=== PATIENT | male | born 1955 | race Caucasian/White ===

== ENCOUNTER 2017-10-31 11:14 | Inpatient (IN) | payer OTHER, MEDICAID ==
[2017-10-31] MEDS: METHYLPREDNISOLONE 125 MG INJ IV (14:39)
[2017-10-31 15:03] LABS: ADD MAN DIFF? NO
[2017-10-31] MEDS: ALBUTEROL 0.5% (NEB) 2.5 MG/0.5 ML AMP INH (15:11)
[2017-10-31 15:15] LABS: BASOPHILS % 0.2 % (0.0-2.0); HEMATOCRIT 43.5 % (42.0-52.0); HEMOGLOBIN 14.3 g/dl (14.0-18.0); LYMPHOCYTES # 1.5 10^3/ul (0.8-2.9); LYMPHOCYTES % 12.3 % (15.0-51.0); MEAN CORPUSCULAR HEMOGLOBIN 29.7 pg (29.0-33.0); MEAN CORPUSCULAR HGB CONC 32.9 g/dl (32.0-37.0); MEAN CORPUSCULAR VOLUME 90.4 fl (82.0-101.0); MEAN PLATELET VOLUME 9.6 fl (7.4-10.4); MONOCYTE # 1.3 10^3/ul (0.3-0.9); MONOCYTES % 10.2 % (0.0-11.0); NEUTROPHIL # 9.5 10^3/ul (1.6-7.5); NEUTROPHILS % 76.7 % (39.0-77.0); PLATELET COUNT 415 10^3/UL (140-415); RED BLOOD COUNT 4.81 10^6/ul (4.70-6.10); RED CELL DISTRIBUTION WIDTH 15.8 % (11.5-14.5)
[2017-10-31 15:15] LABS: WHITE BLOOD COUNT 12.4 10^3/ul (4.8-10.8)
[2017-10-31 15:40] LABS: LACTIC ACID 3.5 mmol/L (0.5-2.0)
[2017-10-31 15:42] LABS: ALANINE AMINOTRANSFERASE 727 IU/L (13-69); ALBUMIN 3.2 g/dl (3.3-4.9); ALBUMIN/GLOBULIN RATIO 1.18; ALKALINE PHOSPHATASE 202 IU/L (42-121); ANION GAP 18 (8-16); ASPARTATE AMINO TRANSFERASE 720 IU/L (15-46); BILIRUBIN,INDIRECT 1.9 mg/dl (0-1.1); BILIRUBIN,TOTAL 2.2 mg/dl (0.2-1.3); BLOOD UREA NITROGEN 46 mg/dl (7-20); CALCIUM 9.1 mg/dl (8.4-10.2); CARBON DIOXIDE 25 mmol/L (21-31); CHLORIDE 97 mmol/L (97-110); CREATINE KINASE 75 IU/L (23-200); CREATININE 1.11 mg/dl (0.61-1.24); GLUCOSE 95 mg/dl (70-220); POTASSIUM 5.6 mmol/L (3.5-5.1); SODIUM 134 mmol/L (135-144); TOTAL PROTEIN 5.9 g/dl (6.1-8.1)
[2017-10-31 15:47] LABS: ETHANOL < 10.0 mg/dl; INR 1.28; PROTIME 16.2 Sec (11.9-14.9); PT RATIO 1.3
[2017-10-31 15:48] LABS: PARTIAL THROMBOPLASTIN TIME 30.2 Sec (25.0-35.0)
[2017-10-31 15:52] LABS: CK INDEX 6.6; CK-MB 4.94 ng/ml (0.0-2.4); TROPONIN-I 0.062 ng/ml (0.000-0.120)
[2017-10-31 15:53] LABS: B-TYPE NATRIURETIC PEPTIDE > 35000 PG/ML (0-125)
[2017-10-31] MEDS: AZITHROMYCIN 500MG/NS (PMX) 250 ML IV (16:12)
[2017-10-31] MEDS: NA BICARBONATE 8.4% 50 ML SYG IV (16:49)
[2017-10-31] MEDS: CEFTRIAXONE 1 GM/50 ML (PMX) 50 ML IVPB (16:49)
[2017-10-31] MEDS: FUROSEMIDE 40 MG INJ IV (16:49)
[2017-10-31 16:50] LABS: AADO2 Arterial 26.8 mmHg (7.0-24.0); Allen Test ACCEPTAB; Arterial Base Excess -2.2 mmol/L (-3.0-3); Arterial Blood Gas Oxygen Sat 96.6 mmHG (95.0-98.0); Arterial COHb 0.9 % (0.0-3.0); Arterial Fraction of Oxyhgb 95.3 % (93.0-99.0); Arterial HCO3 20.5 mmol/L (22.0-26.0); Arterial MetHb 0.4 % (0.0-1.5); Arterial Total Hemglobin 14.4 g/dl (12.0-18.0); Arterial pCO2 29.9 mmhg (35-45); MODE ROOM AIR; Site Right Radial
[2017-10-31] MEDS: CA CHLORIDE 10% 10 ML SYRINGE IV (17:01)
[2017-10-31 17:04] LABS: ADD UMIC YES; UR ASCORBIC ACID NEGATIVE (NEGATIVE); UR BILIRUBIN (Dip) NEGATIVE (NEGATIVE); UR BLOOD (Dip) NEGATIVE (NEGATIVE); UR CLARITY SLIGHTLY CLOUDY (CLEAR); UR COLOR AMBER (YELLOW); UR GLUCOSE (Dip) NEGATIVE (NEGATIVE); UR KETONES (Dip) NEGATIVE (NEGATIVE); UR LEUKOCYTE ESTERASE (Dip) NEGATIVE Leu/ul (NEGATIVE); UR MUCUS FEW /HPF (NONE SEEN); UR NITRITE (Dip) NEGATIVE (NEGATIVE); UR RBC 1 /HPF (0-5); UR SPECIFIC GRAVITY (Dip) 1.023 (1.003-1.030); UR TOTAL PROTEIN (Dip) 2+ mg/dl (NEGATIVE); UR UROBILINOGEN (Dip) 1+ mg/dL (NEGATIVE); UR WBC 1 /HPF (0-5)
[2017-10-31] MEDS: ONDANSETRON 4 MG INJ IV (17:05)
[2017-10-31 17:09] LABS: LACTIC ACID 2.6 mmol/L (0.5-2.0)
[2017-10-31 17:27] LABS: BARBITURATES Negative (NEGATIVE); BENZODIAZEPINES Negative (NEGATIVE); CANNABINOIDS Negative (NEGATIVE); COCAINE Negative (NEGATIVE); OPIATES Negative (NEGATIVE)
[2017-10-31 17:34] LABS: AMPHETAMINE/METHAMPHETAMINE Positive (NEGATIVE)
[2017-10-31] MEDS ORDERED: ONDANSETRON 4 MG INJ IV (18:00)
[2017-10-31] MEDS ORDERED: ACETAMINOPHEN 325 MG TAB PO (18:00)
[2017-10-31] MEDS: ONDANSETRON (ODT) 4 MG TAB ODT (18:51)
[2017-10-31 20:49] LABS: LACTIC ACID 2.6 mmol/L (0.5-2.0)
[2017-10-31] MEDS ORDERED: ALBUTEROL/IPRATROPIUM (NEB) 3 ML AMP HHN (22:30)
[2017-11-01] MEDS ORDERED: FUROSEMIDE 40 MG INJ IV (09:00)
== END 2017-11-01 00:30 | disposition left against medical advice (07) | DRG 291 ==
LOC: E/R 11:14 → TEL 17:41
DX: I50.9 Heart failure, unspecified (principal); J18.9 Pneumonia, unspecified organism; J44.1 Chronic obstructive pulmonary disease with (acute) exacerbation; E87.1 Hypo-osmolality and hyponatremia; Z72.0 Tobacco use; Z59.0 Homelessness; K40.90 Unilateral inguinal hernia, without obstruction or gangrene, not specified as recurrent; Z91.19 Patient's noncompliance with other medical treatment and regimen; K72.90 Hepatic failure, unspecified without coma
CPT/HCPCS: 36415; 36600; 71045; 74176; 80053; 80307; 81001; 82550; 82553; 82803; 83605; 83880; 84484; 85025; 85610; 85730; 87040; 87081; 93005; 93970; 94644; 96374; 96375; 99291-25

== ENCOUNTER 2017-11-01 05:21 | Inpatient (IN) | payer OTHER ==
[2017-11-01] MEDS: ALBUTEROL 0.083% (NEB) 2.5 MG/3 ML AMP HHN (06:49)
[2017-11-01 06:52] LABS: ADD MAN DIFF? NO
[2017-11-01] MEDS: ASPIRIN 81 MG TAB PO (07:01)
[2017-11-01] MEDS: CEFTRIAXONE 1 GM/50 ML (PMX) 50 ML IVPB (07:02)
[2017-11-01] MEDS: FUROSEMIDE 40 MG INJ IV ×2 (07:02→19:13)
[2017-11-01 07:03] LABS: BASOPHILS % 0.1 % (0.0-2.0); HEMATOCRIT 43.2 % (42.0-52.0); LYMPHOCYTES # 0.7 10^3/ul (0.8-2.9); LYMPHOCYTES % 6.6 % (15.0-51.0); MEAN CORPUSCULAR HEMOGLOBIN 28.8 pg (29.0-33.0); MEAN CORPUSCULAR HGB CONC 32.4 g/dl (32.0-37.0); MEAN CORPUSCULAR VOLUME 88.9 fl (82.0-101.0); MEAN PLATELET VOLUME 9.8 fl (7.4-10.4); MONOCYTE # 0.8 10^3/ul (0.3-0.9); MONOCYTES % 6.8 % (0.0-11.0); NEUTROPHIL # 9.4 10^3/ul (1.6-7.5); PLATELET COUNT 330 10^3/UL (140-415); RED BLOOD COUNT 4.86 10^6/ul (4.70-6.10); RED CELL DISTRIBUTION WIDTH 15.8 % (11.5-14.5)
[2017-11-01 07:21] LABS: ALANINE AMINOTRANSFERASE 542 IU/L (13-69); ALBUMIN 3.2 g/dl (3.3-4.9); ALBUMIN/GLOBULIN RATIO 1.14; ALKALINE PHOSPHATASE 174 IU/L (42-121); ANION GAP 18 (8-16); ASPARTATE AMINO TRANSFERASE 241 IU/L (15-46); BILIRUBIN,INDIRECT 0.8 mg/dl (0-1.1); BILIRUBIN,TOTAL 0.8 mg/dl (0.2-1.3); BLOOD UREA NITROGEN 52 mg/dl (7-20); CALCIUM 9.2 mg/dl (8.4-10.2); CARBON DIOXIDE 27 mmol/L (21-31); CHLORIDE 97 mmol/L (97-110); CREATININE 1.22 mg/dl (0.61-1.24); GLUCOSE 124 mg/dl (70-220); LIPASE 42 U/L (23-300); POTASSIUM 5.7 mmol/L (3.5-5.1); SODIUM 136 mmol/L (135-144)
[2017-11-01 07:24] LABS: ETHANOL < 10.0 mg/dl
[2017-11-01 07:24] LABS: AMMONIA < 9 umol/l (9-30)
[2017-11-01 07:32] LABS: TROPONIN-I 0.084 ng/ml (0.000-0.120)
[2017-11-01] MEDS: AZITHROMYCIN 500MG/NS (PMX) 250 ML IVPB (07:35)
[2017-11-01 07:54] LABS: B-TYPE NATRIURETIC PEPTIDE 50000 PG/ML (0-125)
[2017-11-01 08:39] LABS: ADD UMIC NO; UR ASCORBIC ACID NEGATIVE (NEGATIVE); UR BILIRUBIN (Dip) NEGATIVE (NEGATIVE); UR BLOOD (Dip) NEGATIVE (NEGATIVE); UR CLARITY CLEAR (CLEAR); UR COLOR YELLOW (YELLOW); UR GLUCOSE (Dip) NEGATIVE (NEGATIVE); UR KETONES (Dip) NEGATIVE (NEGATIVE); UR LEUKOCYTE ESTERASE (Dip) NEGATIVE Leu/ul (NEGATIVE); UR NITRITE (Dip) NEGATIVE (NEGATIVE); UR SPECIFIC GRAVITY (Dip) 1.009 (1.003-1.030); UR TOTAL PROTEIN (Dip) NEGATIVE (NEGATIVE); UR UROBILINOGEN (Dip) NEGATIVE (NEGATIVE)
[2017-11-01 09:01] LABS: AMPHETAMINE/METHAMPHETAMINE Negative (NEGATIVE); BARBITURATES Negative (NEGATIVE); BENZODIAZEPINES Negative (NEGATIVE); CANNABINOIDS Negative (NEGATIVE); COCAINE Negative (NEGATIVE); OPIATES Negative (NEGATIVE)
[2017-11-01 17:58] LABS: HAAIG REFLEX REFLEX FILED
[2017-11-01] MEDS ORDERED: METOCLOPRAMIDE 10 MG INJ IV (18:00)
[2017-11-01] MEDS ORDERED: ACETAMINOPHEN 325 MG TAB PO (18:00)
[2017-11-01] MEDS ORDERED: ONDANSETRON 4 MG TAB PO (18:00)
[2017-11-01] MEDS ORDERED: DOCUSATE SODIUM 100 MG CAP PO (18:00)
[2017-11-01] MEDS ORDERED: NACL 0.9% 3 ML SYG IV (18:00)
[2017-11-01 18:48] LABS: HEPATITIS B SURFACE ANTIGEN NEGATIVE (NEGATIVE)
[2017-11-01 19:03] LABS: CREATINE KINASE 219 IU/L (23-200)
[2017-11-01 19:06] LABS: HEPATITIS B CORE ANTIBODY REACTIVE (NEGATIVE); HEPATITIS C VIRAL ANTIBODY NEGATIVE (NEGATIVE)
[2017-11-01] MEDS: NA POLYST SULFON 15 GM/60 ML BTL PO (19:13)
[2017-11-01 19:16] LABS: CK INDEX 3.8; CK-MB 8.42 ng/ml (0.0-2.4)
[2017-11-01 19:21] LABS: TROPONIN-I 0.136 ng/ml (0.000-0.120)
[2017-11-01] MEDS ORDERED: NITROGLYCERIN (SL) 0.4 MG TAB SL (21:00)
[2017-11-02 02:00] LABS: CREATINE KINASE 133 IU/L (23-200)
[2017-11-02 02:13] LABS: CK INDEX 5.7; CK-MB 7.62 ng/ml (0.0-2.4)
[2017-11-02 02:16] LABS: TROPONIN-I 0.184 ng/ml (0.000-0.120)
[2017-11-02] MEDS: PANTOPRAZOLE 40 MG INJ IV (05:47)
[2017-11-02] MEDS: FUROSEMIDE 40 MG INJ IV ×2 (05:53→17:34)
[2017-11-02 06:11] LABS: ADD MAN DIFF? NO
[2017-11-02 06:45] LABS: ABNORMAL IP MESSAGE 1; BASOPHILS % 0.1 % (0.0-2.0); HEMATOCRIT 36.8 % (42.0-52.0); HEMOGLOBIN 12.1 g/dl (14.0-18.0); LYMPHOCYTES # 0.6 10^3/ul (0.8-2.9); LYMPHOCYTES % 3.9 % (15.0-51.0); MEAN CORPUSCULAR HEMOGLOBIN 29.4 pg (29.0-33.0); MEAN CORPUSCULAR HGB CONC 32.9 g/dl (32.0-37.0); MEAN CORPUSCULAR VOLUME 89.3 fl (82.0-101.0); MEAN PLATELET VOLUME 9.7 fl (7.4-10.4); MONOCYTE # 1.3 10^3/ul (0.3-0.9); MONOCYTES % 8.6 % (0.0-11.0); NEUTROPHIL # 13.1 10^3/ul (1.6-7.5); NEUTROPHILS % 86.9 % (39.0-77.0); PLATELET COUNT 304 10^3/UL (140-415); POSITIVE DIFF @See below; RED BLOOD COUNT 4.12 10^6/ul (4.70-6.10); RED CELL DISTRIBUTION WIDTH 15.7 % (11.5-14.5)
[2017-11-02 07:18] LABS: ALANINE AMINOTRANSFERASE 340 IU/L (13-69); ALBUMIN 2.5 g/dl (3.3-4.9); ALKALINE PHOSPHATASE 143 IU/L (42-121); ANION GAP 13 (8-16); ASPARTATE AMINO TRANSFERASE 104 IU/L (15-46); BILIRUBIN,INDIRECT 0.6 mg/dl (0-1.1); BILIRUBIN,TOTAL 0.6 mg/dl (0.2-1.3); BLOOD UREA NITROGEN 50 mg/dl (7-20); CALCIUM 8.3 mg/dl (8.4-10.2); CARBON DIOXIDE 32 mmol/L (21-31); CHLORIDE 93 mmol/L (97-110); CHOLESTEROL 109 mg/dl (100-200); GLUCOSE 97 mg/dl (70-220); HDL CHOLESTEROL 18 mg/dl (30-78); LDL CHOLESTEROL,CALCULATED 66 mg/dl; MAGNESIUM 1.9 mg/dl (1.7-2.5); PHOSPHORUS 4.5 mg/dl (2.5-4.9); SODIUM 134 mmol/L (135-144); TRIGLYCERIDES 126 mg/dl (0-149)
[2017-11-02] MEDS: AZITHROMYCIN 250 MG TAB PO (08:10)
[2017-11-02] MEDS: ASPIRIN 81 MG TAB PO (08:10)
[2017-11-02] MEDS: ENOXAPARIN 40 MG/0.4 ML SYG SC (08:20)
[2017-11-02] MEDS: CEFTRIAXONE 1 GM/50 ML (PMX) 50 ML IVPB (11:43)
[2017-11-03] MEDS: ALBUTEROL/IPRATROPIUM (NEB) 3 ML AMP HHN ×2 (01:45→16:02)
[2017-11-03] MEDS: FUROSEMIDE 40 MG INJ IV ×2 (05:34→17:36)
[2017-11-03] MEDS: PANTOPRAZOLE (EC) 40 MG TAB PO (05:35)
[2017-11-03 06:40] LABS: ADD MAN DIFF? NO
[2017-11-03 06:49] LABS: WHITE BLOOD COUNT 9.9 10^3/ul (4.8-10.8)
[2017-11-03 06:49] LABS: BASOPHILS % 0.1 % (0.0-2.0); EOSINOPHILS # 0.1 10^3/ul (0.0-0.5); EOSINOPHILS % 0.7 % (0.0-7.0); HEMATOCRIT 36.8 % (42.0-52.0); LYMPHOCYTES # 1.2 10^3/ul (0.8-2.9); LYMPHOCYTES % 11.8 % (15.0-51.0); MEAN CORPUSCULAR HEMOGLOBIN 29.7 pg (29.0-33.0); MEAN CORPUSCULAR HGB CONC 32.6 g/dl (32.0-37.0); MEAN CORPUSCULAR VOLUME 91.1 fl (82.0-101.0); MEAN PLATELET VOLUME 9.7 fl (7.4-10.4); MONOCYTE # 1.1 10^3/ul (0.3-0.9); NEUTROPHIL # 7.5 10^3/ul (1.6-7.5); NEUTROPHILS % 75.7 % (39.0-77.0); PLATELET COUNT 298 10^3/UL (140-415); RED BLOOD COUNT 4.04 10^6/ul (4.70-6.10); RED CELL DISTRIBUTION WIDTH 15.7 % (11.5-14.5)
[2017-11-03 07:29] LABS: ANION GAP 9 (8-16); BLOOD UREA NITROGEN 51 mg/dl (7-20); CARBON DIOXIDE 39 mmol/L (21-31); CHLORIDE 90 mmol/L (97-110); CREATININE 0.96 mg/dl (0.61-1.24); GLUCOSE 77 mg/dl (70-220); POTASSIUM 3.6 mmol/L (3.5-5.1); SODIUM 134 mmol/L (135-144)
[2017-11-03 07:51] LABS: PROSTATE SPECIFIC ANTIGEN 0.3 ng/ml (0.0-4.0)
[2017-11-03] MEDS: AZITHROMYCIN 250 MG TAB PO (08:12)
[2017-11-03] MEDS: ASPIRIN 81 MG TAB PO (08:13)
[2017-11-03] MEDS: ENOXAPARIN 40 MG/0.4 ML SYG SC (08:27)
[2017-11-03] MEDS: CEFTRIAXONE 1 GM/50 ML (PMX) 50 ML IVPB (10:33)
[2017-11-04] MEDS: PANTOPRAZOLE (EC) 40 MG TAB PO (05:26)
[2017-11-04] MEDS: FUROSEMIDE 40 MG INJ IV ×2 (05:27→17:01)
[2017-11-04 07:13] LABS: ADD MAN DIFF? NO
[2017-11-04 07:19] LABS: WHITE BLOOD COUNT 9.7 10^3/ul (4.8-10.8)
[2017-11-04 07:19] LABS: BASOPHILS % 0.1 % (0.0-2.0); EOSINOPHILS # 0.2 10^3/ul (0.0-0.5); EOSINOPHILS % 2.3 % (0.0-7.0); HEMATOCRIT 39.9 % (42.0-52.0); HEMOGLOBIN 12.8 g/dl (14.0-18.0); LYMPHOCYTES # 1.6 10^3/ul (0.8-2.9); LYMPHOCYTES % 16.4 % (15.0-51.0); MEAN CORPUSCULAR HEMOGLOBIN 28.8 pg (29.0-33.0); MEAN CORPUSCULAR HGB CONC 32.1 g/dl (32.0-37.0); MEAN CORPUSCULAR VOLUME 89.7 fl (82.0-101.0); MEAN PLATELET VOLUME 9.7 fl (7.4-10.4); MONOCYTES % 10.5 % (0.0-11.0); NEUTROPHIL # 6.8 10^3/ul (1.6-7.5); NEUTROPHILS % 70.3 % (39.0-77.0); PLATELET COUNT 328 10^3/UL (140-415); RED BLOOD COUNT 4.45 10^6/ul (4.70-6.10); RED CELL DISTRIBUTION WIDTH 15.6 % (11.5-14.5)
[2017-11-04 07:41] LABS: BLOOD UREA NITROGEN 39 mg/dl (7-20); CHLORIDE 86 mmol/L (97-110); CREATININE 0.75 mg/dl (0.61-1.24); GLUCOSE 77 mg/dl (70-220); POTASSIUM 3.4 mmol/L (3.5-5.1); SODIUM 133 mmol/L (135-144)
[2017-11-04 08:02] LABS: ANION GAP 7 (8-16); CARBON DIOXIDE 43 mmol/L (21-31)
[2017-11-04] MEDS: ASPIRIN 81 MG TAB PO (08:43)
[2017-11-04] MEDS: AZITHROMYCIN 250 MG TAB PO (08:44)
[2017-11-04] MEDS: ENOXAPARIN 40 MG/0.4 ML SYG SC (08:45)
[2017-11-04] MEDS: CEFTRIAXONE 1 GM/50 ML (PMX) 50 ML IVPB (10:32)
[2017-11-04] MEDS: ALBUTEROL/IPRATROPIUM (NEB) 3 ML AMP HHN (13:19)
[2017-11-04 16:34] LABS: BLOOD UREA NITROGEN 36 mg/dl (7-20); CALCIUM 7.7 mg/dl (8.4-10.2); CHLORIDE 84 mmol/L (97-110); CREATININE 0.78 mg/dl (0.61-1.24); GLUCOSE 92 mg/dl (70-220); POTASSIUM 3.2 mmol/L (3.5-5.1); SODIUM 134 mmol/L (135-144)
[2017-11-04 16:49] LABS: ANION GAP 10 (8-16); CARBON DIOXIDE 43 mmol/L (21-31)
[2017-11-04] MEDS: POTASSIUM CHLORIDE (SR) 20 MEQ TAB PO (20:28)
[2017-11-04] MEDS: ACETAZOLAMIDE 250 MG TAB PO (20:29)
[2017-11-05] MEDS ORDERED: SPIRONOLACTONE 25 MG TAB PO (09:00)
[2017-11-05] MEDS ORDERED: LISINOPRIL 5 MG TAB PO (09:00)
== END 2017-11-04 23:55 | disposition left against medical advice (07) | DRG 291 ==
LOC: 6WM 11-02 18:12 → E/R 05:21 → MS3 07:01
DX: I11.0 Hypertensive heart disease with heart failure (principal); J18.9 Pneumonia, unspecified organism; B19.10 Unspecified viral hepatitis B without hepatic coma; J44.1 Chronic obstructive pulmonary disease with (acute) exacerbation; J44.0 Chronic obstructive pulmonary disease with (acute) lower respiratory infection; I50.23 Acute on chronic systolic (congestive) heart failure; Z59.0 Homelessness; R06.01 Orthopnea; R91.8 Other nonspecific abnormal finding of lung field; E87.5 Hyperkalemia; R94.31 Abnormal electrocardiogram [ECG] [EKG]; R79.89 Other specified abnormal findings of blood chemistry; F17.200 Nicotine dependence, unspecified, uncomplicated
CPT/HCPCS: 36415; 71045; 76705; 76856; 80048; 80053; 80061; 80307; 81003; 82140; 82550; 82553; 83690; 83735; 83880; 84100; 84153; 84154; 84484; 85025; 86704; 86709; 86803; 87340; 93005; 93306; 94640; 94644; 94664; 99291-25

== ENCOUNTER 2017-12-09 05:20 | Inpatient (IN) | payer OTHER ==
[2017-12-09] MEDS ORDERED: ACETAMINOPHEN 325 MG TAB PO (07:30)
[2017-12-09] MEDS: ALBUTEROL/IPRATROPIUM (NEB) 3 ML AMP HHN ×4 (08:10→21:00)
[2017-12-09 08:54] LABS: ADD MAN DIFF? NO
[2017-12-09 08:56] LABS: BASOPHILS % 0.2 % (0.0-2.0); EOSINOPHILS % 0.3 % (0.0-7.0); HEMATOCRIT 51.5 % (42.0-52.0); HEMOGLOBIN 16.2 g/dl (14.0-18.0); LYMPHOCYTES # 1.1 10^3/ul (0.8-2.9); LYMPHOCYTES % 11.1 % (15.0-51.0); MEAN CORPUSCULAR HEMOGLOBIN 27.6 pg (29.0-33.0); MEAN CORPUSCULAR HGB CONC 31.5 g/dl (32.0-37.0); MEAN CORPUSCULAR VOLUME 87.9 fl (82.0-101.0); MEAN PLATELET VOLUME 10.3 fl (7.4-10.4); MONOCYTE # 0.7 10^3/ul (0.3-0.9); MONOCYTES % 7.3 % (0.0-11.0); NEUTROPHIL # 8.1 10^3/ul (1.6-7.5); NEUTROPHILS % 80.7 % (39.0-77.0); PLATELET COUNT 343 10^3/UL (140-415); RED BLOOD COUNT 5.86 10^6/ul (4.70-6.10); RED CELL DISTRIBUTION WIDTH 17.1 % (11.5-14.5)
[2017-12-09] MEDS: ENOXAPARIN 60 MG/0.6 ML SYG SC ×2 (09:00→13:33)
[2017-12-09 09:21] LABS: ANION GAP 14 (8-16); BLOOD UREA NITROGEN 30 mg/dl (7-20); CARBON DIOXIDE 29 mmol/L (21-31); CHLORIDE 98 mmol/L (97-110); CREATININE 0.69 mg/dl (0.61-1.24); GLUCOSE 130 mg/dl (70-220); POTASSIUM 5.6 mmol/L (3.5-5.1); SODIUM 135 mmol/L (135-144)
[2017-12-09 11:46] LABS: MAGNESIUM 2.1 mg/dl (1.7-2.5)
[2017-12-09] MEDS ORDERED: ZOLPIDEM 5 MG TAB PO (13:00)
[2017-12-09] MEDS ORDERED: NACL 0.9% 3 ML SYG IV (13:00)
[2017-12-09] MEDS ORDERED: IBUPROFEN 600 MG TAB PO (13:00)
[2017-12-09] MEDS ORDERED: ONDANSETRON 4 MG INJ IV (13:00)
[2017-12-09] MEDS: NA POLYST SULFON 15 GM/60 ML BTL PO (13:29)
[2017-12-09 14:22] LABS: PT RATIO 1.2
[2017-12-09 14:43] LABS: INR 1.14; PROTIME 14.8 Sec (11.9-14.9)
[2017-12-09 14:44] LABS: PARTIAL THROMBOPLASTIN TIME 31.6 Sec (25.0-35.0)
[2017-12-09 19:25] LABS: HDL CHOLESTEROL 23 mg/dl (30-78); LDL CHOLESTEROL,CALCULATED 95 mg/dl; TRIGLYCERIDES 110 mg/dl (0-149)
[2017-12-09 19:25] LABS: CHOLESTEROL 140 mg/dl (100-200)
[2017-12-09 19:38] LABS: TROPONIN-I 0.091 ng/ml (0.000-0.120)
[2017-12-09] MEDS: METOPROLOL 25 MG TAB PO (20:32)
[2017-12-09] MEDS: DOCUSATE SODIUM 100 MG CAP PO (20:33)
[2017-12-10] MEDS: ALBUTEROL/IPRATROPIUM (NEB) 3 ML AMP HHN ×6 (00:56→20:25)
[2017-12-10 05:08] LABS: ADD MAN DIFF? NO
[2017-12-10 05:26] LABS: WHITE BLOOD COUNT 10.3 10^3/ul (4.8-10.8)
[2017-12-10 05:26] LABS: BASOPHILS % 0.1 % (0.0-2.0); EOSINOPHILS % 0.1 % (0.0-7.0); HEMATOCRIT 46.3 % (42.0-52.0); HEMOGLOBIN 14.8 g/dl (14.0-18.0); LYMPHOCYTES # 1.2 10^3/ul (0.8-2.9); LYMPHOCYTES % 11.9 % (15.0-51.0); MEAN CORPUSCULAR HEMOGLOBIN 27.7 pg (29.0-33.0); MEAN CORPUSCULAR VOLUME 86.5 fl (82.0-101.0); MEAN PLATELET VOLUME 10.2 fl (7.4-10.4); MONOCYTE # 1.1 10^3/ul (0.3-0.9); MONOCYTES % 10.3 % (0.0-11.0); PLATELET COUNT 282 10^3/UL (140-415); RED BLOOD COUNT 5.35 10^6/ul (4.70-6.10); RED CELL DISTRIBUTION WIDTH 17.1 % (11.5-14.5)
[2017-12-10] MEDS: PANTOPRAZOLE (EC) 40 MG TAB PO (05:37)
[2017-12-10 07:29] LABS: ALANINE AMINOTRANSFERASE 74 IU/L (13-69); ALBUMIN 2.4 g/dl (3.3-4.9); ALBUMIN/GLOBULIN RATIO 0.85; ALKALINE PHOSPHATASE 195 IU/L (42-121); ANION GAP 11 (8-16); ASPARTATE AMINO TRANSFERASE 53 IU/L (15-46); BILIRUBIN,INDIRECT 0.9 mg/dl (0-1.1); BILIRUBIN,TOTAL 1.6 mg/dl (0.2-1.3); BLOOD UREA NITROGEN 32 mg/dl (7-20); CALCIUM 8.8 mg/dl (8.4-10.2); CARBON DIOXIDE 31 mmol/L (21-31); CHLORIDE 97 mmol/L (97-110); CREATININE 0.75 mg/dl (0.61-1.24); GLUCOSE 88 mg/dl (70-220); SODIUM 134 mmol/L (135-144); TOTAL PROTEIN 5.2 g/dl (6.1-8.1)
[2017-12-10] MEDS: METOPROLOL 25 MG TAB PO ×3 (08:38→20:47)
[2017-12-10] MEDS: ENOXAPARIN 60 MG/0.6 ML SYG SC ×2 (08:47→20:49)
[2017-12-10] MEDS: HYDROCODONE/APAP (5/325) TAB PO (20:46)
[2017-12-11] MEDS: ALBUTEROL/IPRATROPIUM (NEB) 3 ML AMP HHN ×5 (01:00→20:47)
[2017-12-11] MEDS: FUROSEMIDE 20 MG INJ IV ×2 (05:58→18:05)
[2017-12-11] MEDS: PANTOPRAZOLE (EC) 40 MG TAB PO (05:58)
[2017-12-11] MEDS: METOPROLOL 25 MG TAB PO (08:52)
[2017-12-11] MEDS: ENOXAPARIN 60 MG/0.6 ML SYG SC ×2 (09:13→20:55)
[2017-12-12] MEDS: ALBUTEROL/IPRATROPIUM (NEB) 3 ML AMP HHN ×6 (00:53→20:34)
[2017-12-12] MEDS: PANTOPRAZOLE (EC) 40 MG TAB PO (06:19)
[2017-12-12] MEDS: FUROSEMIDE 20 MG INJ IV ×2 (06:19→17:24)
[2017-12-12] MEDS: SPIRONOLACTONE 25 MG TAB PO (08:36)
[2017-12-12] MEDS: METOPROLOL 25 MG TAB PO (08:37)
[2017-12-12] MEDS: ENOXAPARIN 60 MG/0.6 ML SYG SC (08:41)
[2017-12-12 09:15] LABS: ALANINE AMINOTRANSFERASE 58 IU/L (13-69); ALBUMIN 2.1 g/dl (3.3-4.9); ALBUMIN/GLOBULIN RATIO 0.84; ALKALINE PHOSPHATASE 163 IU/L (42-121); ANION GAP 10 (8-16); ASPARTATE AMINO TRANSFERASE 33 IU/L (15-46); BILIRUBIN,INDIRECT 1.1 mg/dl (0-1.1); BILIRUBIN,TOTAL 1.3 mg/dl (0.2-1.3); BLOOD UREA NITROGEN 35 mg/dl (7-20); CALCIUM 8.2 mg/dl (8.4-10.2); CARBON DIOXIDE 35 mmol/L (21-31); CHLORIDE 94 mmol/L (97-110); CREATININE 0.64 mg/dl (0.61-1.24); GLUCOSE 62 mg/dl (70-220); POTASSIUM 3.2 mmol/L (3.5-5.1); SODIUM 136 mmol/L (135-144); TOTAL PROTEIN 4.6 g/dl (6.1-8.1)
[2017-12-12] MEDS ORDERED: PENDING SANTYL ORDER FOR WOUND CARE XX (11:00)
[2017-12-12] MEDS ORDERED: COLLAGENASE 5 GM (UD JAR) TOP (11:30)
[2017-12-12] MEDS: COLLAGENASE 5 GM (UD JAR) TOP (12:37)
[2017-12-12] MEDS: POTASSIUM CHLORIDE (SR) 20 MEQ TAB PO (17:25)
[2017-12-12] MEDS: DOCUSATE SODIUM 100 MG CAP PO (17:55)
[2017-12-12] MEDS: APIXABAN 5 MG TABLET PO (20:48)
[2017-12-12] MEDS: METOPROLOL (XL) 25 MG TAB PO (20:48)
[2017-12-13] MEDS: ALBUTEROL/IPRATROPIUM (NEB) 3 ML AMP HHN ×6 (01:34→21:18)
[2017-12-13 06:01] LABS: ALANINE AMINOTRANSFERASE 62 IU/L (13-69); ALBUMIN 2.1 g/dl (3.3-4.9); ALKALINE PHOSPHATASE 180 IU/L (42-121); ANION GAP 9 (8-16); ASPARTATE AMINO TRANSFERASE 41 IU/L (15-46); BILIRUBIN,INDIRECT 1.3 mg/dl (0-1.1); BILIRUBIN,TOTAL 1.5 mg/dl (0.2-1.3); BLOOD UREA NITROGEN 27 mg/dl (7-20); CALCIUM 7.7 mg/dl (8.4-10.2); CARBON DIOXIDE 39 mmol/L (21-31); CHLORIDE 89 mmol/L (97-110); CREATININE 0.53 mg/dl (0.61-1.24); GLUCOSE 76 mg/dl (70-220); POTASSIUM 3.1 mmol/L (3.5-5.1); SODIUM 134 mmol/L (135-144); TOTAL PROTEIN 4.7 g/dl (6.1-8.1)
[2017-12-13] MEDS: PANTOPRAZOLE (EC) 40 MG TAB PO (06:16)
[2017-12-13] MEDS: FUROSEMIDE 20 MG INJ IV ×3 (06:16→17:26)
[2017-12-13] MEDS: SPIRONOLACTONE 25 MG TAB PO (09:17)
[2017-12-13] MEDS: METOPROLOL (XL) 25 MG TAB PO ×2 (09:18→20:57)
[2017-12-13] MEDS: POTASSIUM CHLORIDE (SR) 20 MEQ TAB PO ×3 (09:18→20:56)
[2017-12-13] MEDS: APIXABAN 5 MG TABLET PO ×2 (09:18→20:56)
[2017-12-13] MEDS: LISINOPRIL 5 MG TAB PO (09:18)
[2017-12-13] MEDS: BALSAM PERU/CASTOR OIL 60 GM TUBE TOP (09:18)
[2017-12-13] MEDS: COLLAGENASE 5 GM (UD JAR) TOP (09:19)
[2017-12-13] MEDS ORDERED: NA PHOSPHATE/BIPHOS 133 ML ENEMA PR (17:00)
[2017-12-13] MEDS: POLYETHYLENE GLYCOL 17 GM PACKET PO ×2 (17:00→17:16)
[2017-12-13] MEDS: BISACODYL (EC) 5 MG TAB PO ×2 (17:00→17:16)
[2017-12-14] MEDS: ALBUTEROL/IPRATROPIUM (NEB) 3 ML AMP HHN ×5 (00:22→21:00)
[2017-12-14] MEDS: PANTOPRAZOLE (EC) 40 MG TAB PO (06:10)
[2017-12-14] MEDS: FUROSEMIDE 20 MG INJ IV (06:10)
[2017-12-14 06:11] LABS: ANION GAP 7 (8-16); BLOOD UREA NITROGEN 20 mg/dl (7-20); CALCIUM 7.6 mg/dl (8.4-10.2); CARBON DIOXIDE 40 mmol/L (21-31); CHLORIDE 87 mmol/L (97-110); CREATININE 0.45 mg/dl (0.61-1.24); GLUCOSE 75 mg/dl (70-220); POTASSIUM 3.2 mmol/L (3.5-5.1); SODIUM 131 mmol/L (135-144)
[2017-12-14] MEDS: SPIRONOLACTONE 25 MG TAB PO (08:56)
[2017-12-14] MEDS: BISACODYL (EC) 5 MG TAB PO (08:56)
[2017-12-14] MEDS: POTASSIUM CHLORIDE (SR) 20 MEQ TAB PO ×4 (08:57→21:52)
[2017-12-14] MEDS: POLYETHYLENE GLYCOL 17 GM PACKET PO (08:57)
[2017-12-14] MEDS: COLLAGENASE 5 GM (UD JAR) TOP (08:57)
[2017-12-14] MEDS: APIXABAN 5 MG TABLET PO ×3 (08:57→21:51)
[2017-12-14] MEDS: METOPROLOL (XL) 25 MG TAB PO ×2 (08:57→21:51)
[2017-12-14] MEDS: LISINOPRIL 5 MG TAB PO (08:57)
[2017-12-14] MEDS: BALSAM PERU/CASTOR OIL 60 GM TUBE TOP (08:58)
[2017-12-14] MEDS: ACETAZOLAMIDE 500 MG INJ IV ×2 (16:40→21:50)
[2017-12-14] MEDS ORDERED: METOPROLOL 5 MG INJ IV (20:00)
[2017-12-15] MEDS: ALBUTEROL/IPRATROPIUM (NEB) 3 ML AMP HHN ×6 (01:45→21:00)
[2017-12-15] MEDS: PANTOPRAZOLE (EC) 40 MG TAB PO (06:00)
[2017-12-15] MEDS: APIXABAN 5 MG TABLET PO (08:54)
[2017-12-15] MEDS: BALSAM PERU/CASTOR OIL 60 GM TUBE TOP (08:54)
[2017-12-15] MEDS: METOPROLOL (XL) 25 MG TAB PO ×2 (08:55→21:00)
[2017-12-15] MEDS: POTASSIUM CHLORIDE (SR) 20 MEQ TAB PO ×3 (08:55→21:19)
[2017-12-15] MEDS: LISINOPRIL 5 MG TAB PO (08:55)
[2017-12-15] MEDS: BISACODYL (EC) 5 MG TAB PO (08:55)
[2017-12-15] MEDS: SPIRONOLACTONE 25 MG TAB PO (08:55)
[2017-12-15] MEDS: POLYETHYLENE GLYCOL 17 GM PACKET PO (08:55)
[2017-12-15] MEDS: COLLAGENASE 5 GM (UD JAR) TOP (08:57)
[2017-12-15] MEDS: ACETAZOLAMIDE 500 MG INJ IV (09:28)
[2017-12-15] MEDS: POTASSIUM CHLORIDE 100 ML IVPB ×4 (12:55→15:44)
[2017-12-15 14:03] LABS: AADO2 Arterial 35.7 mmHg (7.0-24.0); Arterial Base Excess 9.7 mmol/L (-3.0-3); Arterial Blood Gas Oxygen Sat 89.7 mmHG (95.0-98.0); Arterial COHb 1.3 % (0.0-3.0); Arterial Fraction of Oxyhgb 88.3 % (93.0-99.0); Arterial HCO3 35.1 mmol/L (22.0-26.0); Arterial MetHb 0.3 % (0.0-1.5); Arterial Total Hemglobin 14.9 g/dl (12.0-18.0); Arterial pCO2 49.8 mmhg (35-45); MODE ROOM AIR; Site Right Brachial
[2017-12-15 14:13] LABS: ANION GAP 9 (8-16); BLOOD UREA NITROGEN 21 mg/dl (7-20); CARBON DIOXIDE 36 mmol/L (21-31); CHLORIDE 89 mmol/L (97-110); GLUCOSE 88 mg/dl (70-220); POTASSIUM 3.3 mmol/L (3.5-5.1); SODIUM 131 mmol/L (135-144)
[2017-12-15] MEDS: POTASSIUM CHLORIDE 20 MEQ POWDER FOR ORAL SOLN PO (15:52)
[2017-12-15] MEDS: FUROSEMIDE 40 MG INJ IV (18:23)
[2017-12-15] MEDS: FUROSEMIDE 40 MG TAB PO (21:20)
[2017-12-16] MEDS: ALBUTEROL/IPRATROPIUM (NEB) 3 ML AMP HHN ×6 (00:50→21:00)
[2017-12-16] MEDS: PANTOPRAZOLE (EC) 40 MG TAB PO (05:31)
[2017-12-16] MEDS: LISINOPRIL 5 MG TAB PO ×2 (09:00→09:04)
[2017-12-16] MEDS: POTASSIUM CHLORIDE (SR) 20 MEQ TAB PO ×4 (09:00→21:00)
[2017-12-16] MEDS: BISACODYL (EC) 5 MG TAB PO ×2 (09:00→09:04)
[2017-12-16] MEDS: SPIRONOLACTONE 25 MG TAB PO ×2 (09:00→09:03)
[2017-12-16] MEDS: POLYETHYLENE GLYCOL 17 GM PACKET PO ×2 (09:00→09:03)
[2017-12-16] MEDS: METOPROLOL (XL) 25 MG TAB PO ×3 (09:00→21:09)
[2017-12-16] MEDS: COLLAGENASE 5 GM (UD JAR) TOP (09:03)
[2017-12-16] MEDS: BALSAM PERU/CASTOR OIL 60 GM TUBE TOP (09:03)
[2017-12-16] MEDS: FUROSEMIDE 20 MG INJ IV (14:00)
[2017-12-16] MEDS: FUROSEMIDE 20 MG TAB PO (14:54)
[2017-12-17] MEDS: ALBUTEROL/IPRATROPIUM (NEB) 3 ML AMP HHN ×6 (00:44→21:00)
[2017-12-17 05:40] LABS: ANION GAP 9 (8-16); BLOOD UREA NITROGEN 20 mg/dl (7-20); CALCIUM 8.1 mg/dl (8.4-10.2); CARBON DIOXIDE 33 mmol/L (21-31); CHLORIDE 94 mmol/L (97-110); CREATININE 0.65 mg/dl (0.61-1.24); GLUCOSE 76 mg/dl (70-220); POTASSIUM 4.1 mmol/L (3.5-5.1); SODIUM 132 mmol/L (135-144)
[2017-12-17] MEDS: PANTOPRAZOLE (EC) 40 MG TAB PO (05:40)
[2017-12-17] MEDS: METOPROLOL (XL) 25 MG TAB PO ×2 (09:00→21:00)
[2017-12-17] MEDS: POLYETHYLENE GLYCOL 17 GM PACKET PO (09:00)
[2017-12-17] MEDS: BISACODYL (EC) 5 MG TAB PO (09:00)
[2017-12-17] MEDS: SPIRONOLACTONE 25 MG TAB PO (09:00)
[2017-12-17] MEDS: LISINOPRIL 5 MG TAB PO (09:00)
[2017-12-17] MEDS: FUROSEMIDE 20 MG INJ IV (09:00)
[2017-12-17] MEDS: COLLAGENASE 5 GM (UD JAR) TOP (09:00)
[2017-12-17] MEDS: POTASSIUM CHLORIDE (SR) 20 MEQ TAB PO ×2 (09:00→21:00)
[2017-12-17] MEDS: ASPIRIN 325 MG TAB PO (09:00)
[2017-12-17] MEDS: BALSAM PERU/CASTOR OIL 60 GM TUBE TOP (09:00)
[2017-12-18] MEDS: ALBUTEROL/IPRATROPIUM (NEB) 3 ML AMP HHN ×3 (01:00→08:30)
[2017-12-18] MEDS: PANTOPRAZOLE (EC) 40 MG TAB PO (05:56)
[2017-12-18] MEDS: SPIRONOLACTONE 25 MG TAB PO (09:00)
[2017-12-18] MEDS: FUROSEMIDE 20 MG INJ IV (09:00)
[2017-12-18] MEDS: COLLAGENASE 5 GM (UD JAR) TOP (09:00)
[2017-12-18] MEDS: METOPROLOL (XL) 25 MG TAB PO (09:00)
[2017-12-18] MEDS: POTASSIUM CHLORIDE (SR) 20 MEQ TAB PO (09:00)
[2017-12-18] MEDS: BALSAM PERU/CASTOR OIL 60 GM TUBE TOP (09:00)
[2017-12-18] MEDS: POLYETHYLENE GLYCOL 17 GM PACKET PO (09:00)
[2017-12-18] MEDS: ASPIRIN 325 MG TAB PO (09:00)
[2017-12-18] MEDS: LISINOPRIL 5 MG TAB PO (09:00)
[2017-12-18] MEDS: BISACODYL (EC) 5 MG TAB PO (09:00)
[2017-12-18] MEDS ORDERED: APIXABAN 5 MG TABLET PO (10:00)
[2017-12-19] MEDS ORDERED: APIXABAN 5 MG TABLET PO (21:00)
== END 2017-12-18 10:30 | disposition left against medical advice (07) | DRG 175 ==
LOC: 6WM 05:20
DX: I26.99 Other pulmonary embolism without acute cor pulmonale (principal); E43 Unspecified severe protein-calorie malnutrition; J96.91 Respiratory failure, unspecified with hypoxia; I50.23 Acute on chronic systolic (congestive) heart failure; B19.10 Unspecified viral hepatitis B without hepatic coma; Z68.1 Body mass index [BMI] 19.9 or less, adult; I42.9 Cardiomyopathy, unspecified; I11.0 Hypertensive heart disease with heart failure; E87.5 Hyperkalemia; R91.8 Other nonspecific abnormal finding of lung field; E78.5 Hyperlipidemia, unspecified; I25.10 Atherosclerotic heart disease of native coronary artery without angina pectoris; J44.9 Chronic obstructive pulmonary disease, unspecified; R79.89 Other specified abnormal findings of blood chemistry; Z87.891 Personal history of nicotine dependence; Z59.0 Homelessness; Z91.19 Patient's noncompliance with other medical treatment and regimen
CPT/HCPCS: 36600; 71045; 80048; 80053; 80061; 82803; 83735; 84484; 85025; 85610; 85730; 93005; 93306; 94640; 94664; 97161; J1120